=== PATIENT | male | born 1965 | race Caucasian/White ===

== ENCOUNTER 2019-12-04 11:44 | Emergency (ER) | payer OTHER, SELFPAY ==
--- NOTE | ~2019-12-04 | XR_ITS ---
EXAMINATION: XR chest 2V EXAM DATE: 12/04/2019 14:05 INDICATION: Chest pain, fever, cough. Shortness of breath. TECHNIQUE: Frontal and lateral projections of the chest obtained and reviewed. Comparison is made to prior examination from 05/10/2019. FINDINGS: The lungs are clear. There are no pleural effusions. The cardiomediastinal silhouette is within normal limits. There is no pneumothorax suspected. The bones and soft tissues are unremarkab le. IMPRESSION: No acute cardiopulmonary findings. Reviewed, dictated and finalized at location A. MASTER
--- NOTE | ~2019-12-04 | CT_ITS ---
EXAMINATION: CT brain wo con DATE: 12/04/2019 15:04 INDICATION: Headache and fever. TECHNIQUE: Computed tomography (CT) of the head was performed without intravenous contrast. The mA wa s adjusted according to patient size. Iterative reconstruction technique was employed. Exam dose: 60 5.33 mGy-cm total exam DLP. COMPARISON: 07/17/2019 CT brain FINDINGS: No intracranial mass lesion or hemorrhage or cerebrovascular accident is evident. No midlin e shift or mass effect. Normal ventricular size. No subdural or epidural hematoma is detected. The orbital contents are unremarkable. No fracture or bone destruction of the cranial vault. There is patchy opacification of ethmoid air cells and frontoethmoid areas bilaterally. There is mini mal focal mucoperiosteal thickening or small mucous retention cysts of the right sphenoid sinus. The mastoid air cells are normally developed and aerated. IMPRESSION: No significant intracranial abnormality Sinus soft tissue thickening at the frontoethmoid, ethmoid and right sphenoid regions Reviewed, dictated and finalized at Location [facility]. Reviewed, dictated and finalized at location B. FACTURING DESIGN ENGINEER IMPRESSION: No significant intracranial abnormality Sinus soft tissue thickening at the frontoethmoid, ethmoid and right sphenoid r egions
--- NOTE | ~2019-12-04 | CT_ITS ---
EXAMINATION: CT cervical spine [facility] EXAM DATE: 12/04/2019 15:04 INDICATION: Fever, hypoxia. Headache. TECHNIQUE: Spiral CT of the cervical spine was performed without contrast. Axial images were reviewe d. Coronal and sagittal reformatted images were also reviewed. The dose-length product (DLP) for thi s examination was 605.33 mGy-cm. The exposure was tailored according to patient size (auto mA exposu re control), and iterative reconstruction (ASIR) was used as additional dose reduction technique. [facility] is no prior study for comparison. FINDINGS: There is cervical fusion hardware C4-6 with anterior and interbody fusion. C6-7 vertebral bodies appear to have osseous fusion without device. There is mild to moderate disc disease at C2-3 a nd C3-4, moderate to severe at C7-T1. The vertebral bodies are aligned in the AP dimension. There are no bony erosions identified, no evidence of osteomyelitis discitis. The odontoid process is intact. The lateral masses of C1 line up with C2. There are no acute fractures identified. Prevertebral soft tissue and pre-dens space are within normal limits. Level by level evaluation: C2-C3: There is a mild diffuse disc bulge. Uncovertebral joint arthropathy: Mild to moderate left, mild right. Facet joint arthropathy: Moderate to severe left, mild right. Neural foraminal stenosis: Mild to moderate left, mild right. Central canal stenosis: No stenosis. C3-C4: There is a mild diffuse disc bulge. Uncovertebral joint arthropathy: Mild bilateral. Facet joint arthropathy: Mild to moderate bilateral. Neural foraminal stenosis: No stenosis. Central canal stenosis: Mild. C4-C5: This level is fused. Uncovertebral joint arthropathy: Mild to moderate left, mild right. Facet joint arthropathy: Moderate left, mild right, but fused bilaterally. Neural foraminal stenosis: Mild to moderate left. Central canal stenosis: No stenosis. C5-C6: This level is fused. Uncovertebral joint arthropathy: Moderate to severe right, moderate left. Facet joint arthropathy: Mild to moderate bilateral. Neural foraminal stenosis: Moderate to severe right, moderate left. Central canal stenosis: No stenosis. C6-C7: There is osseous fusion of these vertebral bodies. Uncovertebral joint arthropathy: Mild to moderate bilateral. Facet joint arthropathy: Mild to moderate bilateral. Neural foraminal stenosis: No stenosis. Central canal stenosis: No stenosis. C7-T1: There is a mild diffuse disc bulge. Uncovertebral joint arthropathy: Moderate bilateral. Facet joint arthropathy: Mild bilateral. Neural foraminal stenosis: Moderate to severe right, moderate left. Central canal stenosis: Minimal. IMPRESSION: 1. Intact fusion C4-7. 2. Significant neural foraminal stenosis. 3. No evidence of discitis. Reviewed, dictated and finalized at location A. ASSEMBLER
--- NOTE | ~2019-12-04 | CT_ITS ---
EXAMINATION: CTA chest PE protocol EXAM DATE: 12/04/2019 16:38 INDICATION: Shortness of breath and dizziness. TECHNIQUE: Spiral CTA of the chest (pulmonary arteries) was performed with 100 cc Omnipaque 350 intr avenous contrast injection. Images were acquired during the pulmonary arterial phase. Coronal maxi mum intensity projection 3D-reconstructions were created by the technologist on dedicated workstation . Axial, coronal and sagittal reformatted images were reviewed. The dose-length product (DLP) for t his examination was 503.24 mGy-cm. The exposure was tailored according to patient size (auto mA exp osure control), and iterative reconstruction (ASIR) was used as additional dose reduction technique. Comparison is made to prior examination from 07/17/2019. FINDINGS: There are no pulmonary emboli in the 1st through 3rd order (central and interlobar) pulmon dangelo arteries. Some loss of attenuation in the segmental pulmonary arteries due to respiratory motion , but no intraluminal filling defects suspected. No thoracic aortic dissection. The lungs are connor r. There are no pleural or pericardial effusions. Tracheobronchial tree is patent. There is no mediastinal, hilar or axillary lymphadenopathy. There is no pneumothorax. Heart normal in size. The main, central pulmonary arteries are dilated which can indicate elevated pulmonary arterial press ure, pulmonary arterial hypertension. There is mild emphysema. No evidence of coronary arterial calci fication. Splenomegaly incompletely imaged. There is moderate thoracic spondylosis without osteobla stic or osteolytic lesions identified. Mid thoracic kyphosis. IMPRESSION: 1. Limited segmental evaluation, but no pulmonary emboli are suspected. 2. Dilated pulmonary arteries. 3. Mild emphysema. Reviewed, dictated and finalized at location A. CIATE DIRECTOR OF SALES
[2019-12-04 12:08] VITALS: BP 117/98; PULSE 135; RESP 30; TEMP 38.6; O2SAT 99
[2019-12-04 12:34] VITALS: RESP 20
--- NOTE | 2019-12-04 13:02 | ED.FEVER ---
HPI - Fever General Chief Complaint: Fever Stated Complaint: sob, fever, headaches, dizzyness Time Seen by Provider: 12/04/19 12:53 Source: patient, family ( at bedside) and RN notes reviewed Mode of arrival: ambulatory Limitations: no limitations History of Present Illness HPI Narrative: Pt is a 54 y/o male presenting to the ED c/o fever. Pt reports he has been experiencing a fever, body aches, SAWYER, cough, nausea, ABD cramping, chills, diaphoresis, and generalized pruritus for a day. Pt's at bedside states he has been experiencing these Sx's about once a month for the past year. Per , the pt presented to this ED 2 weeks ago with these Sx's, and notes his fever was 103.3 F at that time. Pt states he was seen by his PCP 2 weeks ago as well where he was prescribed medications after being diagnosed with Acute bronchitis and PNA. Pt states he was sick for the weekend, noting his Sx's lasted until Wednesday before resolving until yesterday. Pt notes he is currently taking Suboxone due to a Hx of IV drug use, noting he last used in August of last year. Pt states he took 2 doses of Tylenol this morning. Pt notes he smokes 1 ppd and Marijuana. Pertinent past history: other (IV drug use) Onset (ago): day(s) (1) Associated symptoms: chills, myalgias, headache, cough, abdominal pain, nausea and other (Diaphoresis; generalized pruritus) Related Data Home Medications Medication Instructions Recorded Confirmed albuterol sulfate INHALATION 12/04/19 buprenorphine-naloxone film 12/04/19 tamsulosin mg PO 12/04/19 testosterone cypionate mg 12/04/19 tramadol mg 12/04/19 Allergies Allergy/AdvReac Type Severity Reaction Status Date / Time No Known Allergies Allergy Verified 12/04/19 12:32 Review of Systems Review of Systems: All systems reviewed & are unremarkable except as noted in HPI and below Constitutional: Constitutional: Reports chills and Reports fever(s) Cardiovascular: Cardiovascular: Reports diaphoresis Respiratory: Respiratory: Reports cough Gastrointestinal: Gastrointestinal: Reports abdominal pain and Reports nausea Musculoskeletal: Musculoskeletal: Reports myalgias Integumentary/Breasts: Skin/Breast: Reports pruritus (Generalized) Neurologic: Reports headache(s) [facility] Past Medical History Medical History (Updated 12/04/19 @ 18:22 by Angélica Mcconnell MD) BPH (benign prostatic hyperplasia) Bronchitis HTN (hypertension) Pneumonia Renal cancer UTI (urinary tract infection) Surgical History Surgical History (Updated 12/04/19 @ 13:58 by Ari Campos) H/O partial nephrectomy History of bilateral knee replacement Social History Social History Smoking packs per day: 1 Smoking cigarettes per day: 20.0 Smoking status: Current every day smoker Alcohol intake: former Substance use type: marijuana and IV drugs Exam Narrative: Exam Narrative: GENERAL: Ill appearing, well-nourished, and in mild distress HEAD: Normocephalic, atraumatic EYES: PERRLA and EOMI, conjunctiva clear without discharge EARS: TM's clear bilaterally without erythema or dullness NOSE: Nares clear, no rhinorrhea or epistaxis THROAT:Mucous membranes moist, Oropharynx normal without erythema, exudate, peritonsillar swelling or fluctuance NECK: Supple, without lymphadenopathy or mass RESPIRATORY: No respiratory distress, Airway patent, Respirations non-labored, Clear to auscultation without rales, rhonchi or wheeze HEART: Regular rhythm, tachycardic rate. No murmur heard. Normal peripheral pulses. ABDOMEN: Soft, nontender, nondistended, normal active bowel sounds. No masses. No rebound or guarding, No organomegaly. EXTREMITIES: No edema, normal strength with full range of motion. SKIN: Warm, diaphoretic, normal color without rash NEURO: Alert and oriented x3. CN 2-12 grossly intact. No focal deficits. PSYCH: Normal mood and affect. Course Reevaluation(s) Reeval
--- NOTE | 2019-12-04 13:12 | ECG_ITS ---
Measurements Intervals [place] Rate: 129 P: 56 MN: 137 QRS: 42 QRSD: 93 T: 53 QT: 282 QTc: 414 Interpretive Statements SINUS TACHYCARDIA MINIMAL Q WAVES- ANTEROLAT/INF LEADS ABNORMAL ECG Electronically Signed On 12-04-2019 17:28:43 SEED COLLECTOR by Tom Cortez D.O.
[2019-12-04 13:34] LABS: Basophils Percent Auto 0.5 % (0.2-1.2); Eosinophils Percent Auto 0.3 % (0-4.4); Hematocrit 40.3 % (42.0-52.0); Immature Granulocyte Absolute 0.04 K/mm3 (0.00-0.031); Immature Granulocyte Percent A 0.7 % (0-0.5); Lymphocytes Absolute Auto 0.36 K/mm3 (0.9-3.2); Lymphocytes Percent Auto 5.9 % (18.3-44.2); Mean Corpuscular HGB Conc 32.3 g/dl (32-36); Mean Corpuscular Hemoglobin 28.6 pg (26-34); Mean Corpuscular Volume 88.6 fl (80-100); Mean Platelet Volume 11.2 fl (7.4-10.4); Monocytes Absolute Auto 0.3 K/mm3 (0.1-0.6); Monocytes Percent Auto 4.2 % (2.6-8.5); Neutrophils Absolute Auto 5.4 K/mm3 (1.3-6.7); Neutrophils Percent Auto 88.4 % (45.5-73.1); Platelet Count Result 144 k/mm3 (150-375); Red Blood Count 4.55 M/mm3 (4.6-6.20); Red Cell Distribution Width 14.6 % (11.5-14.5); White Blood Count 6.1 K/mm3 (4.5-10.0)
[2019-12-04 13:37] LABS: Add Urine Microscopic? YES; Appearance Urine Clear (Clear); Bilirubin Urine Negative (Negative); Blood Urine Negative (Negative); Color Urine Yellow (Yellow); Glucose Urine UA Negative (Negative); Ketones Urine Trace mg/dL (Negative); Leukocyte Esterase Ur Negative LEU/UL (Negative); Mucus Urine Rare /lpf; Nitrate Urine Negative (Negative); Protein Urine 1+ mg/dL (Negative); RBC Urine 0-2 /hpf (0-2); WBC Urine 0-3 /hpf
[2019-12-04 13:45] LABS: INR 1.1; Prothrombin Time 13.8 Seconds (11.1-14.7)
[2019-12-04 13:48] VITALS: BP 123/67; PULSE 129; RESP 18; TEMP 38.9; O2SAT 93
[2019-12-04 13:49] LABS: Partial Thromboplastin Time 29.1 SECONDS (22.3-36.8)
[2019-12-04 13:51] LABS: Alanine Aminotransferase 16 U/L (4-50); Albumin Level 4.3 g/dL (3.5-5.1); Alkaline Phosphatase 67 U/L (38-126); Aspartate Amino Transferase 24 U/L (17-59); Bilirubin,Total 0.9 mg/dL (0.2-1.3); Blood Urea Nitrogen 15 mg/dL (9-20); CRP 8.3 mg/dL (<1.0); Calcium 9.5 mg/dL (8.4-10.2); Carbon Dioxide 26 mmol/L (22-30); Chloride 94 mmol/L (98-107); Estimated CRCL calculation 109 ml/min; Estimated Glomerular Filt Rate > 60; Glucose 88 mg/dL (75-110); Potassium 3.8 mmol/L (3.4-5.0); Sodium 134 mmol/L (137-145)
[2019-12-04] MEDS: SODIUM CHLORIDE 0.9% IV 1,000 ML 999 ML IV CONT ×2 (13:51→16:03)
[2019-12-04 16:01] VITALS: BP 114/79; PULSE 121; RESP 18; TEMP 37.8; O2SAT 91
[2019-12-04 17:31] VITALS: BP 113/94; PULSE 104; RESP 18; TEMP 37.2; O2SAT 95
[2019-12-04 18:28] VITALS: BP 110/67; PULSE 104; RESP 18; TEMP 37.2; O2SAT 95
== END 2019-12-04 18:30 | disposition left against medical advice (07) ==
PROVIDERS: Emergency Provider General Practice
DX: R50.9 Fever, unspecified (principal); R65.10 Systemic inflammatory response syndrome (SIRS) of non-infectious origin without acute organ dysfunction; F17.210 Nicotine dependence, cigarettes, uncomplicated; N40.0 Benign prostatic hyperplasia without lower urinary tract symptoms; I10 Essential (primary) hypertension; Z87.440 Personal history of urinary (tract) infections; Z90.5 Acquired absence of kidney; Z96.653 Presence of artificial knee joint, bilateral; Z85.528 Personal history of other malignant neoplasm of kidney
CPT/HCPCS: 36415; 70450; 71046; 71275; 72125; 80053; 81001; 83605; 85025; 85610; 85730; 86140; 87040; 87804; 93005; 96361; 96365; 96367; 99284; J0131; J0696; J7030; Q9967